=== PATIENT | male | born 1980 | race Caucasian/White ===

== ENCOUNTER 2018-09-22 15:35 | Emergency (ER) | payer MEDICAID ==
[~2018-09-22] VITALS: Ht 180.3 cm; Wt 90.1 kg
[2018-09-22] MEDS ORDERED: SODIUM CHLORIDE 0.9% 1,000 ML IV ONE (15:43)
[2018-09-22] MEDS ORDERED: HYDROmorphone 2 MG/ML, 1ML ONE (15:56)
[2018-09-22] MEDS ORDERED: CEFAZOLIN PMX 1GM/50ML 50 ML ONE (15:56)
[2018-09-22] MEDS ORDERED: DIPH,PERTUSS(ACELL),TET VAC/PF 0.5 ML IM-VACC ONE ×2 (15:56→16:00)
[2018-09-22] MEDS ORDERED: ONDANSETRON 2MG/ML, 2ML ONE (15:56)
[2018-09-22] MEDS ORDERED: SODIUM CHLORIDE FLUSH 10ML SYR IVF ONE (16:00)
[2018-09-22] MEDS ORDERED: ONDANSETRON 2MG/ML, 2ML IVPush ONE (16:00)
[2018-09-22] MEDS ORDERED: CEFAZOLIN PMX 1GM/50ML 50 ML IV ONE (16:00)
[2018-09-22] MEDS: HYDROmorphone 2 MG/ML, 1ML IVPush PRN ×2 (16:11→17:38)
[2018-09-22] MEDS ORDERED: ONDANSETRON ODT 4 MG ONE (18:12)
[2018-09-22] MEDS ORDERED: OXYcodone/APAP 10/325MG TABLET ONE (18:12)
[2018-09-22] MEDS ORDERED: OXYcodone/APAP 10/325MG TABLET PO ONE (18:30)
[2018-09-22] MEDS ORDERED: ONDANSETRON ODT 4 MG PO ONE (18:30)
[2018-09-22 18:45] VITALS: BP 127/86
== END 2018-09-22 18:47 | disposition home or self-care (01) ==
LOC: ED 16:30
DX: S52.502A Unspecified fracture of the lower end of left radius, initial encounter for closed fracture (principal); W18.30XA Fall on same level, unspecified, initial encounter; Y93.89 Activity, other specified; Y92.009 Unspecified place in unspecified non-institutional (private) residence as the place of occurrence of the external cause; Y99.8 Other external cause status
CPT/HCPCS: 29125; 73110; 90471; 90715; 96365; 96375; 96376; 99283; J0690; J1170; J2405; J7030; Q0162

== ENCOUNTER 2018-10-15 17:38 | Emergency (ER) | payer MEDICAID ==
[~2018-10-15] VITALS: Ht 180.3 cm; Wt 86.0 kg
[2018-10-15 17:40] VITALS: BP 146/55
[2018-10-15] MEDS ORDERED: LEVE250T28 PO (18:02)
[2018-10-15] MEDS ORDERED: KETOROLAC 30 MG/1 ML ONE (18:23)
[2018-10-15] MEDS ORDERED: KETOROLAC 30 MG/1 ML IM ONE (18:30)
--- NOTE | 2018-10-15 18:35 | NUR ---
PT REPORTS HAVING HAD MEDICATION PRIOR W/O RXN AND STATES THAT HE IS COMFORTABLE GOING HOME AT THIS TIME. DC EDUCATION PROVIDED, PT DEMONSTRATES UNDERSTANDING. PT AMBULATED STEADILY TO DC WITH RN
== END 2018-10-15 18:37 | disposition home or self-care (01) ==
LOC: ED 18:33
DX: L76.34 Postprocedural seroma of skin and subcutaneous tissue following other procedure (principal); F17.200 Nicotine dependence, unspecified, uncomplicated
CPT/HCPCS: 96372; 99283; J1885